=== PATIENT | female | born 1985 | race Two or more races ===

== ENCOUNTER 2023-02-08 09:16 | Emergency (ER) | payer MEDICAID ==
[~2023-02-08] VITALS: Ht 165.1 cm; Wt 77.5 kg
[2023-02-08] MEDS ORDERED: METO25ER PO (09:49)
[2023-02-08] MEDS ORDERED: LISI20 (09:49)
[2023-02-08] MEDS ORDERED: ALBU90OI INH (09:50)
[2023-02-08 12:17] VITALS: BP 126/83
== END 2023-02-08 12:19 | disposition home or self-care (01) ==
LOC: ER 09:16
DX: M75.22 Bicipital tendinitis, left shoulder (principal); Z88.8 Allergy status to other drugs, medicaments and biological substances; Z88.5 Allergy status to narcotic agent; Z79.899 Other long term (current) drug therapy; F17.210 Nicotine dependence, cigarettes, uncomplicated
CPT/HCPCS: 76882; 99283-25; A9270